=== PATIENT | male | born 1985 | race Caucasian/White ===

== ENCOUNTER 2017-02-22 02:24 | Emergency (ER) | payer SELFPAY ==
[~2017-02-22] VITALS: Ht 177.8 cm; Wt 91.9 kg
[~2017-02-22 02:24] MED LIST: ENDOCET 5-3251 EACH; FLEXERIL10 MG PO; FLEXERIL5 MG PO; LORTAB 5-325 M1 EACH PO; MOBIC7.5 MG PO; MOTRIN600 MG PO; NAPROSYN500 MG PO; NAPROXEN500 MG PO; NOHOMEMEDS; NORCO 5/3251 TABLET PO; PERCOCET 5/31 TABLET PO; SKELAXIN800 MG PO; ULTRAM50 MG PO
[2017-02-22 04:07] VITALS: BP 122/75
== END 2017-02-22 04:08 | disposition home or self-care (01) ==
LOC: EME 02:24
DX: S60.221A Contusion of right hand, initial encounter (principal); W22.8XXA Striking against or struck by other objects, initial encounter; F17.200 Nicotine dependence, unspecified, uncomplicated
CPT/HCPCS: 73130; 99281; 99283

== ENCOUNTER 2017-05-09 23:16 | Emergency (ER) | payer SELFPAY ==
[~2017-05-09] VITALS: Ht 177.8 cm; Wt 95.6 kg
[2017-05-10] MEDS ORDERED: MEDROL DOSEPAK4 MG PO (01:45)
[2017-05-10] MEDS ORDERED: AMOXICILLIN875 MG PO (01:45)
[2017-05-10 01:52] VITALS: BP 130/87
== END 2017-05-10 01:53 | disposition home or self-care (01) ==
LOC: EME 23:16 → EXP 23:16
DX: J32.9 Chronic sinusitis, unspecified (principal); J06.9 Acute upper respiratory infection, unspecified; F17.200 Nicotine dependence, unspecified, uncomplicated
CPT/HCPCS: 99281; 99283